=== PATIENT | male | born 1955 | race Caucasian/White ===

== ENCOUNTER 2023-06-15 14:58 | Outpatient (CLI) | payer BC, MEDICARE | END 2023-06-15 14:59 | disposition home or self-care (01) | LOC: CSHRAD 14:58 | PROVIDERS: ATTEND Internal Medicine Rheumatology | DX: M46.1 Sacroiliitis, not elsewhere classified (principal); M25.50 Pain in unspecified joint | CPT/HCPCS: 72202 ==